=== PATIENT | female | born 1975 | race African-American/Black ===

== ENCOUNTER 2017-04-06 10:15 | Emergency (ER) | payer OTHER ==
[2017-04-06] MEDS ORDERED: BUTALB/ACETAMINOPHEN/CAFFEINE 1 TAB EACH PO ONE (10:32)
--- NOTE | 2017-04-06 10:54 | RADIOLOGY REPORT (SQ) ---
EXAM DESCRIPTION: CT HEAD WITHOUT COMPLETED DATE/TIME: 04/06/2017 10:43 am REASON FOR STUDY: left sided facial pain COMPARISON: None. TECHNIQUE: Axial images acquired through the brain without intravenous contrast. Images reviewed wi th bone, brain and subdural windows. Images stored on PACS. All CT scanners at this facility use dose modulation, iterative reconstruction, and/or weight based d osing when appropriate to reduce radiation dose to as low as reasonably achievable (ALARA). [facility]: Dose Right [facility]: CareDose [facility]: Dose Right [facility]: Teradose 4D [facility]: [employer] RADIATION DOSE: Up-to-date CT equipment and radiation dose reduction techniques were employed. CTDIv ol: 64.6 mGy. DLP: 1163 mGy-cm. mGy. LIMITATIONS: None. FINDINGS: VENTRICLES: Normal size and contour. CEREBRUM: No masses. No hemorrhage. No midline shift. No evidence for acute infarction. Normal gra y/white matter differentiation. No areas of low density in the white matter. CEREBELLUM: No masses. No hemorrhage. No alteration of density. No evidence for acute infarction. EXTRAAXIAL SPACES: No fluid collections. No masses. ORBITS AND GLOBE: No intra- or extraconal masses. Normal contour of globe without masses. CALVARIUM: No fracture. PARANASAL SINUSES: There is mucous membrane thickening in the right fronto ethmoid junction, bilatera l ethmoid air cells, left sphenoid sinus, and bilateral maxillary sinuses SOFT TISSUES: No mass or hematoma. OTHER: No other significant finding. IMPRESSION: No acute intracranial changes. Paranasal sinus inflammatory change EVIDENCE OF ACUTE STROKE: NO. COMMENT: Quality ID # [id number]: Final reports with documentation of one or more dose reduction techniques (e.g., Automated exposure control, adjustment of the mA and/or kV according to patient size, use of iterative reconstruction technique) TECHNICAL DOCUMENTATION: JOB ID: [id number] [employer]- All Rights Reserved
--- NOTE | 2017-04-06 11:29 | ER Document Report ---
ED Headache - General Chief Complaint: Headache Stated Complaint: HEADACHE Time Seen by Provider: 04/06/17 10:31 Mode of Arrival: Ambulatory Information source: Patient Notes: Patient states that she has a history of migraines. She states that since yesterday she has a left-sided headache that is different than her usual migraines. It is causing some blurry vision in the left eye. It is severe and sharp. It is constant. Nothing makes it better or worse. The pain does radiate to the left side of her face. She denies any fevers. She has had sinus congestion. TRAVEL OUTSIDE OF THE [place] IN LAST 30 DAYS: No - Related Data Allergies/Adverse Reactions: No Known Allergies Allergy (Verified 06/15/16 04:53) Past Medical History - General Information source: Patient - Social History Smoking Status: Current Every Day Smoker Chew tobacco use (# tins/day): No Frequency of alcohol use: None Drug Abuse: None Family History: None, Reviewed & Not Pertinent Patient has suicidal ideation: No Patient has homicidal ideation: No Neurological Medical History: Reports: Hx Migraine Renal/ Medical History: Reports: Hx Kidney Stones. Denies: Hx Peritoneal Dialysis Musculoskeltal Medical History: Reports Hx Arthritis - knees and hips Past Surgical History: Reports: Hx Cardiac Catheterization - x2, Hx Section - x2, Hx Gynecologic Surgery - fibroid removed, Hx Tubal Ligation - Immunizations Hx Diphtheria, Pertussis, Tetanus Vaccination: Yes - 2016 Review of Systems - Review of Systems Constitutional: denies: Chills, Fever EENT: Blurred vision. denies: Eye discharge Cardiovascular: denies: Chest pain, Palpitations Respiratory: Cough. denies: Short of breath -: Yes All other systems reviewed and negative Physical Exam - Vital signs Vitals: Temp Pulse Resp BP Pulse Ox 98.6 F 98 16 113/73 99 04/06/17 10:17 04/06/17 10:17 04/06/17 10:17 04/06/17 10:17 04/06/17 10:17 Interpretation: Normal - General General appearance: Appears well, Alert - HEENT Head: Normocephalic, Atraumatic Eyes: Normal Pupils: PERRL - Respiratory Respiratory status: No respiratory distress Chest status: Nontender Breath sounds: Normal Chest palpation: Normal - Cardiovascular Rhythm: Regular Heart sounds: Normal auscultation Murmur: No - Abdominal Inspection: Normal Distension: No distension Bowel sounds: Normal Tenderness: Nontender Organomegaly: No organomegaly - Back Back: Normal, Nontender - Extremities General upper extremity: Normal inspection, Nontender, Normal color, Normal ROM , Normal temperature General lower extremity: Normal inspection, Nontender, Normal color, Normal ROM , Normal temperature, Normal weight bearing. 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 Discharge - Discharge Clinical Impression: Acute sinusitis Condition: Stable Disposition: HOME, SELF-CARE Instructions: Sinusitis ([facility]) Additional Instructions: Please follow-up with your primary care physician as soon as possible Prescriptions: Amox Tr/Potassium Clavulanate [Augmentin 875-125 Tablet] 1 tab PO BID 10 Days tablet Butalb/Acetaminophen/Caffeine [Fioricet (50-325-40 mg) Tablet] 1 - 2 tab PO Q4H #20 tab
[2017-04-06 11:41] VITALS: BP 98/70
== END 2017-04-06 11:45 | disposition home or self-care (01) ==
LOC: ER 10:15
DX: J01.90 Acute sinusitis, unspecified (principal); R51 Headache; H53.8 Other visual disturbances; F17.200 Nicotine dependence, unspecified, uncomplicated
CPT/HCPCS: 99284; 70450; J3490

== ENCOUNTER 2018-06-04 10:24 | Emergency (ER) | payer OTHER ==
[2018-06-04] MEDS ORDERED: NORMAL SALINE 1000 ML 1,000 ML IV ONE (10:58)
[2018-06-04] MEDS ORDERED: DIPHENHYDRAMINE HCL 50 MG/ML VIAL IV ONE (10:59)
[2018-06-04] MEDS ORDERED: MAGNESIUM SULFATE/D5W 1 GM/100 ML RTUPB IV ONE (10:59)
[2018-06-04] MEDS ORDERED: BUTALB/ACETAMINOPHEN/CAFFEINE 1 TAB EACH PO ONE (10:59)
[2018-06-04] MEDS ORDERED: DEXAMETHASONE SOD PHOS INJ 10 MG/1 ML VIAL IV ONE (10:59)
[2018-06-04] MEDS ORDERED: KETOROLAC TROMETHAMINE INJ/PF 30 MG/1 ML SDV IV ONE (10:59)
[2018-06-04] MEDS ORDERED: METOCLOPRAMIDE HCL INJ/PF 10 MG/2 ML SDV IV ONE (11:00)
--- NOTE | 2018-06-04 11:03 | ER Document Report ---
ED General - General Chief Complaint: Headache Stated Complaint: HEADACHE Time Seen by Provider: 06/04/18 10:54 Notes: Patient is a 42-year-old female with history of migraines that presents to the emergency department for chief complaint of headache. Patient states she is been having a headache since this past Monday, typical of her migraines, she states the pain is behind both eyes, which is common with her other migraine she has had in the past. This is not the worst when she has had, but states is from the longer-lasting ones. She currently rates it as a 6 out of 10, dull and throbbing ache sensation, with associated nausea and photophobia, no vomiting. She did take rizatriptan, without resolution of her symptoms, which she usually does help so she decided to come to the emergency department. She is not currently on any maintenance medication or prophylactic migraine medications. She denies any any numbness, weakness or tingling, or changes in her gait. Past Medical History: Migraine headaches Past Surgical History: x2, tubal ligation Social History: Admits to smoking cigarettes daily, denies alcohol or drug use Family History: Reviewed and noncontributory for presenting illness Allergies: Reviewed, see documented allergy list. REVIEW OF SYSTEMS: Other than noted above, the 12 point review of systems was reviewed with the patient and were negative, all pertinent findings are included in the HPI. PHYSICAL EXAMINATION: Vital signs reviewed, nursing noted reviewed. GENERAL: Well-appearing, well-nourished and in no acute distress. HEAD: Atraumatic, normocephalic. EYES: Eyes appear normal, extraocular movements intact, sclera anicteric, conjunctiva are normal. PERRLA ENT: nares patent, oropharynx clear without exudates. Moist mucous membranes. NECK: Normal range of motion, supple without lymphadenopathy LUNGS: Breath sounds clear to auscultation bilaterally and equal. No wheezes rales or rhonchi. HEART: Regular rate and rhythm without murmurs ABDOMEN: Soft, nontender, normoactive bowel sounds. No rebound, guarding, or rigidity. No masses appreciated. EXTREMITIES: Nontender, good range of motion, no pitting or edema. NEUROLOGICAL: No focal neurological deficits. Moves all extremities spontaneously Motor and sensory grossly intact on exam. PSYCH: Normal mood, normal affect. SKIN: Warm, Dry, normal turgor, no rashes or lesions noted on exposed skin TRAVEL OUTSIDE OF THE [place] IN LAST 30 DAYS: No - Related Data Allergies/Adverse Reactions: No Known Allergies Allergy (Verified 06/04/18 10:29) Past Medical History - Social History Smoking Status: Current Every Day Smoker Chew tobacco use (# tins/day): No Frequency of alcohol use: Occasional Drug Abuse: None Family History: None, Reviewed & Not Pertinent Patient has suicidal ideation: No Patient has homicidal ideation: No Neurological Medical History: Reports: Hx Migraine Renal/ Medical History: Reports: Hx Kidney Stones. Denies: Hx Peritoneal Dialysis Musculoskeletal Medical History: Reports Hx Arthritis - knees and hips Past Surgical History: Reports: Hx Cardiac Catheterization - x2, Hx Section - x2, Hx Gynecologic Surgery - fibroid removed, Hx Thyroid Surgery, Hx Tubal Ligation - Immunizations Hx Diphtheria, Pertussis, Tetanus Vaccination: Yes - 2015 Physical Exam - Vital signs Vitals: Temp Pulse Resp BP Pulse Ox 98.6 F 117 H 14 134/76 H 97 06/04/18 10:29 06/04/18 10:29 06/04/18 10:29 06/04/18 10:29 06/04/18 10:29 Course - Re-evaluation Re-evalutation: Patient seen and examined vital signs reviewed. Patient was evaluated and treated as appropriate for the patient's presenting symptoms and complaint, with consideration of any critical or life threatening conditions that may be associated with their obtained history and exam as noted above. Patient was treated with IV fluids, IV Reglan, IV Benadryl, IV Toradol, IV, IV dexamethasone, and Fioricet p.o. The patient was re-evaluated and was much improved, headache was resolved Evaluation was most consistent with headache Plan of care was discussed with the patient at this point, after careful consideration I feel that that patient can be discharged from the emergency department, the patient was educated treatments and reasons to return to the emergency department based on their presumed diagnosis as noted above, they were advised to followup with a primary care physician in 2-3 days. Patient was agreeable to plan of care. *Note is created using voice recognition software and may contain spelling, syntax or grammatical errors. - Vital Signs Vital signs: Temp Pulse Resp BP Pulse Ox 98.6 F 117 H 14 134/76 H 97 06/04/18 10:29 06/04/18 10:29 06/04/18 10:29 06/04/18 10:29 06/04/18 10:29 Discharge - Discharge Clinical Impression: Cephalgia Qualifiers: Headache type: unspecified Headache chronicity pattern: acute headache Intractability: not intractable Qualified Code(s): R51 - Headache Condition: Stable Disposition: HOME, SELF-CARE Instructions: Headache ([facility]) Additional Instructions: Please return to the emergency department if you have any worsening, or concern of your symptoms. Please return to the emergency department if you develop chest pain, difficulty breathing, severe abdominal pain, or ongoing vomiting. Please follow-up with your primary care physician in 2-3 days and any other recommended physicians. If prescribed, take all medications as directed. If you have any questions or concerns do not hesitate to return the emergency department for evaluation. Prescriptions: Butalb/Acetaminophen/Caffeine [Fioricet (50-325-40 mg) Tablet] 1 - 2 tab PO Q8H PRN #10 tab PRN Reason: headache Referrals: CRISTIANO CAMPUZANO MD [COMMUNITY BASED STAFF] - Follow up in 3-5 days (or your primary care )
[2018-06-04 12:41] VITALS: BP 126/84
== END 2018-06-04 12:40 | disposition home or self-care (01) ==
LOC: ER 10:24
DX: R51 Headache (principal); R11.0 Nausea; H53.149 Visual discomfort, unspecified; F17.200 Nicotine dependence, unspecified, uncomplicated
CPT/HCPCS: 99283; 96375; 96365; J3490; J1200; J1885; J2765; J3475; J7030; J1100

== ENCOUNTER 2019-05-01 19:39 | Emergency (ER) | payer OTHER ==
[2019-05-01] MEDS ORDERED: ASPIRIN 81 MG TABLET, CHEWABLE PO ONE ×2 (19:51→20:04)
[2019-05-01 20:28] LABS: ABSOLUTE BASOPHILS # (AUTO) 0.1 10^3/uL (0.0-0.2); ABSOLUTE EOSINOPHILS # (AUTO) 0.7 10^3/uL (0.0-0.6); ABSOLUTE LYMPHOCYTES (AUTO) 2.4 10^3/uL (0.5-4.7); ABSOLUTE MONOCYTES (AUTO) 0.6 10^3/uL (0.1-1.4); ABSOLUTE NEUT (AUTO) 4.3 10^3/uL (1.7-8.2); ALKALINE PHOSPHATASE 65 U/L (38-126); ANION GAP 9 (5-19); ASPARTATE AMINO TRANSFERASE 22 U/L (14-36); BASOPHILS % (AUTO) 1.1 % (0-2); BILIRUBIN,DIRECT 0.1 mg/dL (0.0-0.4); BILIRUBIN,TOTAL 0.3 mg/dL (0.2-1.3); BLOOD UREA NITROGEN 14 mg/dL (7-20); CALCIUM 9.3 mg/dL (8.4-10.2); CARBON DIOXIDE 28 mmol/L (22-30); CHLORIDE 102 mmol/L (98-107); CREATINE KINASE 47 U/L (30-135); EOSINOPHILS % (AUTO) 8.1 % (0-6); GLUCOSE 142 mg/dL (75-110); HEMATOCRIT 40.8 % (36.0-47.0); HEMOGLOBIN 13.2 g/dL (12.0-15.5); MEAN CORPUSCULAR HEMOGLOBIN 24.9 pg (27.0-33.4); MEAN CORPUSCULAR HGB CONC 32.5 g/dL (32.0-36.0); MEAN CORPUSCULAR VOLUME 77 fl (80-97); MONOCYTES % (AUTO) 7.5 % (3-13); PLATELET COUNT 235 10^3/uL (150-450); POTASSIUM 4.3 mmol/L (3.6-5.0); RED BLOOD COUNT 5.31 10^6/uL (3.72-5.28); RED CELL DISTRIBUTION WIDTH 15.3 % (11.5-14.0); SEGMENTED NEUTROPHILS % (AUTO) 53.3 % (42-78); TOTAL CELLS COUNTED % (AUTO) 100 %; TOTAL PROTEIN 7.2 g/dL (6.3-8.2); WHITE BLOOD COUNT 8.1 10^3/uL (4.0-10.5)
[2019-05-01 20:41] LABS: CREATINE KINASE MB < 0.22 ng/mL (<4.55); TROPONIN I < 0.012 ng/mL
[2019-05-01] MEDS ORDERED: NORMAL SALINE 1000 ML 1,000 ML IV ONE (20:43)
[2019-05-01] MEDS ORDERED: LORAZEPAM INJ 2 MG/1 ML VIAL IV ONE (20:43)
--- NOTE | 2019-05-01 20:48 | ER Document Report ---
ED Cardiac - General Chief Complaint: Palpitations Stated Complaint: TACHYCARDIA [facility] Provider: [facility] [[facility]] - Follow up as needed Mode of Arrival: Ambulatory Information source: Patient TRAVEL OUTSIDE OF THE [place] IN LAST 30 DAYS: No - HPI Patient complains to provider of: Palpitations. denies: Chest pain, Chest tightness, Shortness of breath, Other Use of: denies: Alcohol, Amphetamines, Bath salts, Caffeine, Cocaine, Decongestants, Other Was the onset of pain: Sudden Chest pain location: No: Substernal, Axillary, Back, Pleuritic, Under breast, Other Quality of pain: denies: None, Constant, Intermittent, Mild, Moderate, Severe, Achy, Burning, Constriction, Cramping, Crushing, Dull, Heaviness, Incisional, Indigestion, Numbness, Pressure, Radiating, Sharp, Stabbing, Tearing, Throbbing, Tightness, Tingling, Other Chest pain radiation location: denies: Left jaw, Left arm, Left shoulder, Right jaw, Right arm, Right shoulder, Back, Neck, None Severity now: Mild Severity at worst: Moderate Pain level currently: Denies Chest pain precipitating factors: Physical Exertion - mild carrying laundry Cardiac risk factors: + Family history. denies: None, Diabetes, Hypertension, Smoker, Dyslipidemia, Hx CHF, Hx OK Positive cardiac history: No Associated symptoms: None. denies: Abdominal pain, Anxiety, Back pain, Cool ex tremities, Diaphoresis, Dizziness, Edema, Fatigue, Fever/chills, Headache, Heartburn, Hypotension, Jaw pain, Lightheaded, Nausea/vomiting, Neck pain, Rash, Shortness of breath, Swelling/lump in chest, Syncope, Weakness, Other Exacerbated by: Denies Relieved by: Nothing - Related Data Allergies/Adverse Reactions: No Known Allergies Allergy (Verified 06/04/18 10:29) Past Medical History - Social History Smoking Status: Current Some Day Smoker Frequency of alcohol use: None Drug Abuse: None Family History: None, Reviewed & Not Pertinent Patient has suicidal ideation: No Patient has homicidal ideation: No Neurological Medical History: Reports: Hx Migraine Renal/ Medical History: Reports: Hx Kidney Stones. Denies: Hx Peritoneal Dialysis Musculoskeletal Medical History: Reports Hx Arthritis - knees and hips Past Surgical History: Reports: Hx Cardiac Catheterization - x2, Hx Section - x2, Hx Gynecologic Surgery - fibroid removed, Hx Thyroid Surgery, Hx Tubal Ligation - Immunizations Hx Diphtheria, Pertussis, Tetanus Vaccination: Yes - 2015 Review of Systems - Review of Systems Constitutional: denies: No symptoms reported, See HPI, Chills, Diaphoresis, Fever, Malaise, Weakness, Other, Weight gain, Weight loss, Recent illness EENT: denies: No symptoms reported, See HPI, Eye pain, Eye discharge, Blurred vision, Tearing, Double vision, Ear pain, Ear discharge, Nose pain, Nose congestion, Nose discharge, Sinus pressure, Sinus discharge, Throat pain, Difficulty swallowing, Throat swelling, Mouth pain, Mouth swelling, Dental problem, Vertigo, Other Cardiovascular: Palpitations. denies: No symptoms reported, See HPI, Chest pain, Heart racing, Orthopnea, Dyspnea, Syncope, Dizziness, Lightheaded, Edema, Other, Paroxysmal Nocturnal Dysp Gastrointestinal: denies: No symptoms reported, See HPI, Abdomen distended, Abdominal pain, Diarrhea, Nausea, Vomiting, Constipation, Blood streaked bowels, Poor appetite, Poor fluid intake, Blood in vomit, Black stools, Rectal bleeding, Last bowel movement, Fecal incontinence, Other Neurological/Psychological: No symptoms reported Physical Exam - Vital signs Vitals: Temp Resp 98.1 F 10 L 05/01/19 19:48 05/01/19 19:48 Notes: PHYSICAL EXAMINATION: GENERAL: Well-appearing, well-nourished and in no acute distress. HEAD: Atraumatic, normocephalic. EYES: Pupils equal round and reactive to light, extraocular movements intact, sclera anicteric, conjunctiva are normal. ENT: nares patent, oropharynx clear without exudates. Moist mucous membranes. NECK: Normal range of motion, supple without lymphadenopathy LUNGS: Breath sounds clear to auscultation bilaterally and equal. No wheezes rales or rhonchi. HEART: tachycardic rate with sinus tach on monitor. no rubs murmurs of gallops ABDOMEN: Soft, nontender, normoactive bowel sounds. No guarding, no rebound. No masses appreciated. EXTREMITIES: Normal range of motion, no pitting or edema. No cyanosis. NEUROLOGICAL: No focal neurological deficits. Moves all extremities spontaneously and on command. PSYCH: Normal mood, normal affect. SKIN: Warm, Dry, normal turgor, no rashes or lesions noted. Course - Vital Signs Vital signs: Temp Pulse Resp BP Pulse Ox 98.1 F 20 120/71 100 05/01/19 19:48 05/01/19 21:05 05/01/19 21:05 05/01/19 21:05 - Laboratory Result Diagrams: 05/01/19 19:53 05/01/19 19:53 Laboratory results interpreted by me: 05/01/19 05/01/19 05/01/19 19:53 19:53 19:53 RBC 5.31 H MCV 77 L MCH 24.9 L RDW 15.3 H Eos % (Auto) 8.1 H Absolute Eos (auto) 0.7 H D-Dimer 0.61 H Glucose 142 H - Diagnostic Test Radiology reviewed: Image reviewed, Reports reviewed - EKG Interpretation by Me EKG shows normal: Sinus rhythm Rate: Tachycardia - Transfer of Care Notes: 05/02/19 00:28 After IV fluids heart rate is now 99 down from approximately 120 I believe that this is partially due to dehydration troponins have been negative d-dimer was positive however CTA of the chest was negative for pulmonary embolus or other abnormality. I will tell her to drink a quite a bit of fluid I think some of it also was due to hyperventilation so I will give her a short course of Ativan. Discharge - Discharge Clinical Impression: Tachycardia, Dehydration, Anxiety Condition: Stable Disposition: HOME, SELF-CARE Instructions: Palpitations (Irregular or Rapid Heartrate) ([facility]), Benzodiazepines ([facility]), Dehydration ([facility]), Anxiety ([facility]) Additional Instructions: Return if shortness of breath chest pain lightheadedness dizziness or condition worsens follow-up with your regular doctor for possible outpatient Holter monitor and/or stress test Prescriptions: Lorazepam [Ativan 0.5 mg Tablet] 0.5 mg PO Q8 #10 tab [facility]errals: [facility] [Primary [facility]] - Follow up as needed
--- NOTE | 2019-05-01 20:58 | RADIOLOGY REPORT (SQ) ---
EXAM DESCRIPTION: XR CHEST 1 VIEW COMPLETED DATE/TME: 05/01/2019 20:05 CLINICAL HISTORY: PALPITATIONS COMPARISON: None FINDINGS: Cardiac silhouette is within normal limits. EKG leads project over the chest. There is no focal parenchymal or pleural disease. There is no acute osseous process visualized. IMPRESSION: No evidence of acute cardiopulmonary disease.
[2019-05-01 21:57] LABS: FREE T4 (FREE THYROXINE) 1.21 ng/dL (0.78-2.19)
[2019-05-01 22:10] LABS: THYROID STIMULATING HORMONE 1.17 uIU/mL (0.47-4.68)
--- NOTE | 2019-05-01 22:57 | EKG REPORT ---
SEVERITY:- OTHERWISE NORMAL ECG - SINUS TACHYCARDIA : Confirmed by: Justo Mcclain 01-May-2019 22:55:54
--- NOTE | 2019-05-02 00:05 | RADIOLOGY REPORT (SQ) ---
EXAM DESCRIPTION: [facility]: CT CHEST ANGIOGRAPHY WITHOUT THEN WITH IV CONTRAST CLINICAL HISTORY: 43 years Female; pos d dimer(0.61) TACHYCARDIA ? pe; TECHNIQUE: CT angiogram of the chest using intravenous contrast.. MIP reconstructions were performed. All CT scans at this facility use dose modulation, iterative reconstruction, and/or weight based dosing when appropriate to reduce radiation dose to as low as reasonably achievable. COMPARISON: None. FINDINGS: Chest: No filling defects in the central pulmonary arteries. No acute infiltrate, effusion, or pneumothorax. Mediastinum is normal, with no adenopathy or mass. IMPRESSION: 1. No CT evidence for pulmonary embolism. 2. No acute pulmonary findings.
[2019-05-02 01:05] VITALS: BP 115/62
== END 2019-05-02 01:05 | disposition home or self-care (01) ==
LOC: ER 19:39
DX: E86.0 Dehydration (principal); F41.9 Anxiety disorder, unspecified; R00.2 Palpitations; R00.0 Tachycardia, unspecified; F17.200 Nicotine dependence, unspecified, uncomplicated; R79.89 Other specified abnormal findings of blood chemistry
CPT/HCPCS: 93005; 99285; 96361; 96374; 36415; 84439; 82553; 82550; 83735; 84443; 85025; 80053; 84484; 85379; 71045; 71275; 93010; J2060; J7030

== ENCOUNTER 2019-09-16 09:53 | Inpatient (IN) | payer OTHER ==
[2019-09-10 11:15] LABS: HEMATOCRIT 38.8 % (36.0-47.0); HEMOGLOBIN 12.9 g/dL (12.0-15.5); MEAN CORPUSCULAR HEMOGLOBIN 25.5 pg (27.0-33.4); MEAN CORPUSCULAR HGB CONC 33.2 g/dL (32.0-36.0); MEAN CORPUSCULAR VOLUME 77 fl (80-97); PLATELET COUNT 253 10^3/uL (150-450); RED BLOOD COUNT 5.06 10^6/uL (3.72-5.28); WHITE BLOOD COUNT 6.3 10^3/uL (4.0-10.5)
[2019-09-10 11:20] LABS: APPEARANCE,URINE CLOUDY; BILIRUBIN,URINE NEGATIVE (NEGATIVE); COLOR,URINE YELLOW; GLUCOSE, URINE NEGATIVE (NEGATIVE); KETONES,URINE NEGATIVE (NEGATIVE); LEUKOCYTE ESTERASE,URINE NEGATIVE (NEGATIVE); NITRITE,URINE NEGATIVE (NEGATIVE); PROTEIN,URINE NEGATIVE (NEGATIVE); URINE SPECIFIC GRAVITY 1.021; UROBILINOGEN,URINE NEGATIVE mg/dL (<2.0)
--- NOTE | 2019-09-10 17:02 | EKG REPORT ---
SEVERITY:- NORMAL ECG - SINUS RHYTHM : Confirmed by: Yu Michele MD 10-Sep-2019 17:01:31
[~2019-09-16 09:53] MED LIST: FENTANYL CITRATE INJ/PF 100 MCG/2 ML AMPUL ONE; HYDROMORPHONE HCL INJ/PF 2 MG/ML AMPULE ONE; LACTATED RINGERS 1000 ML IV PRN; LIDOCAINE 0.5% INJ-PF (5 MG/ML) 50 ML SDV SUBCUT PRN; MIDAZOLAM 2 MG/2 ML INJ ONE; PROPOFOL INJ 200 MG/20 ML VIAL IV ONE
[2019-09-16] MEDS ORDERED: PROMETHAZINE HCL INJ 25 MG/1 ML VIAL ONE (11:21)
[2019-09-16] MEDS ORDERED: CEFAZOLIN INJ 1 GM VIAL ONE (11:42)
[2019-09-16] MEDS ORDERED: MEPERIDINE HCL/PF INJ 25 MG/1 ML DISP.SYRIN IV PRN (11:44)
[2019-09-16] MEDS ORDERED: FENTANYL CITRATE INJ/PF 100 MCG/2 ML AMPUL IV PRN ×3 (11:44)
[2019-09-16] MEDS ORDERED: DIPHENHYDRAMINE HCL 50 MG/ML VIAL IV PRN (11:44)
[2019-09-16] MEDS ORDERED: MORPHINE SULFATE 10 MG/ML INJ IV PRN (11:44)
[2019-09-16] MEDS ORDERED: PROMETHAZINE HCL INJ 25 MG/1 ML VIAL IV PRN (11:44)
[2019-09-16] MEDS ORDERED: ONDANSETRON HCL INJ/PF 4 MG/2 ML SDV IV PRN (11:44)
--- NOTE | 2019-09-16 13:09 | Operative Report ---
Operative Report DATE OF SURGERY: 09/16/19 PREOPERATIVE DIAGNOSIS: Menorrhagia fibroids POSTOPERATIVE DIAGNOSIS: Same OPERATION: [facility] bilateral salpingectomy excision of round ligament mass SURGEON: RAMSEY CENTENO 1ST [employer] MANAGER: SUKHWINDER GABRIEL ANESTHESIA: GA TISSUE REMOVED OR ALTERED: Uterus tubes and right adnexal mass ESTIMATED BLOOD LOSS: Possibly 100 cc PROCEDURE: Patient was placed in a supine position prepped draped sterile fashion. Pfannenstiel incision was made through the existing Pfannenstiel eschar. The incision carried through the subcutaneous tissue and fascia with sharp dissection. Fascia was sharply divided and the parietoperitoneum was entered with sharp dissection. Large uterus was encountered and grasped with a Geraldine thyroid clamp. Large Kellys were placed at the utero-ovarian ligaments. The left round ligament was identified sutured and then divided and Achilles free space was entered on the left the mesosalpinx and utero-ovarian ligament was clamped and divided. Pedicles were tied with 2-0 Vicryl. The procedure was repeated on the right. A large 10 x 10 fibroid was then shelled out from the fundus. Uterus was then removed by clamping each broad ligament pedicle divided and sutured with 2-0 Vicryl. Bladder flap was created with sharp dissection. Patient carried down until crossclamped we placed on the cervix and the cervix and remaining portion of the uterus was removed. The articles were closed with suture of 2-0 Vicryl and the cuff was closed with a [id number] suture of 2- 0 Vicryl. Small amount of bleeding was noted on the dome of the bladder this was controlled with a 3-0 Vicryl stitch. There was a 2 x 2 centimeter cystic mass arising from the round ligament on the right this was crossclamped and that was removed. And the pedicle and sutured with 2-0 Vicryl. The pedicles were inspected and hemostasis was noted. Abuse amounts of irrigation were then used and again hemostasis was noted. FloSeal seal was placed over the dome of the bladder. The previously placed retractor and wet saline packs were then were used to pack the bowel were removed. Perineum was cc plicated midline using 2-0 Vicryl. Fascia is closed with 0 Vicryl one stitch beginning the right in the midline a second begun to the left and right to the midline. It was closed usi ng insorb johnnie. The patient is urinating clear throughout the procedure was terminated she was taken recovery in good condition.
[2019-09-16] MEDS ORDERED: FENTANYL CITRATE INJ/PF 100 MCG/2 ML AMPUL ONE (13:26)
[2019-09-16] MEDS ORDERED: MORPHINE SULFATE 10 MG/ML INJ ONE (13:38)
[2019-09-16] MEDS ORDERED: DEXAMETHASONE SOD PHOSPHATE INJ 4 MG/1 ML VIAL ONE (14:17)
[2019-09-16] MEDS ORDERED: KETOROLAC TROMETHAMINE 60 MG/2 ML SDV ONE (14:17)
[2019-09-16] MEDS ORDERED: SUCCINYLCHOLINE CHLORIDE INJ 200 MG/10 ML VIAL ONE (14:17)
[2019-09-16] MEDS ORDERED: ONDANSETRON HCL INJ/PF 4 MG/2 ML SDV ONE (14:17)
[2019-09-16] MEDS ORDERED: ROCURONIUM BROMIDE INJ 50 MG/5 ML VIAL IV ONE (14:17)
[2019-09-16] MEDS: OXYCODONE-ACETAMINOPHEN 5-325 MG TABLET PO PRN ×2 (15:31→21:42)
[2019-09-16] MEDS ORDERED: IBUPROFEN 800 MG TABLET PO SCH (16:00)
[2019-09-16] MEDS: MORPHINE SULFATE 10 MG/ML INJ IM PRN ×2 (16:23→23:30)
[2019-09-16] MEDS: DEXTROSE 5%-LACTATED RINGERS 1,000 ML IV PRN (19:25)
[2019-09-16] MEDS: IBUPROFEN 800 MG TABLET PO SCH (21:42)
[2019-09-17] MEDS: OXYCODONE-ACETAMINOPHEN 5-325 MG TABLET PO PRN ×3 (03:50→16:13)
[2019-09-17] MEDS: DEXTROSE 5%-LACTATED RINGERS 1,000 ML IV PRN (03:52)
[2019-09-17] MEDS: IBUPROFEN 800 MG TABLET PO SCH ×3 (06:58→22:18)
--- NOTE | 2019-09-17 07:29 | PDOC PROGRESS REPORT ---
Subjective Progress Note for:: 09/17/19 Subjective:: pt states she feels fine Reason For Visit: N93.9 ABNORMAL UTERINE AND VAGINAL BLEEDING, UNSPE Physical Exam - Physical Exam Vital Signs: Temp Pulse Resp BP Pulse Ox 97.7 F 115 H 18 120/76 100 09/17/19 04:16 09/17/19 04:16 09/17/19 04:16 09/17/19 04:16 09/17/19 04:16 Intake & Output 09/16/19 09/17/19 09/18/19 06:59 06:59 06:59 Intake Total 3500 Output Total 1150 Balance 2350 Weight 98.43 kg General appearance: PRESENT: no acute distress Respiratory exam: PRESENT: clear to auscultation [email or web address] Cardiovascular exam: PRESENT: RRR Result Laboratory Results: 09/10/19 10:48 Assessment & Plan - Diagnosis (1) Menorrhagia Is this a current diagnosis for this admission?: Yes (2) Fibroid uterus Is this a current diagnosis for this admission?: Yes - Time Time Spent with patient: Less than 15 minutes Medications reviewed and adjusted accordingly: Yes Anticipated discharge: Home Within: within 24 hours
[2019-09-17] MEDS ORDERED: OXYCODONE-ACETAMINOPHEN 5-325 MG TABLET PO SCH (17:30)
[2019-09-17] MEDS ORDERED: OXYCODONE-ACETAMINOPHEN 5-325 MG TABLET PO PRN ×2 (22:00→22:30)
[2019-09-17] MEDS ORDERED: OXYCODONE-ACETAMINOPHEN 5-325 MG TABLET PO ONE (22:45)
[2019-09-18] MEDS ORDERED: OXYCODONE-ACETAMINOPHEN 5-325 MG TABLET PO SCH ×2 (03:00→12:00)
[2019-09-18] MEDS: IBUPROFEN 800 MG TABLET PO SCH (05:00)
--- NOTE | 2019-09-18 07:30 | PDOC DISCHARGE SUMMARY ---
Impression - Admit/DC Date/PCP Admission Date/Primary Care Provider: 09/16/19 09:53 NICOLETTE FAROOQ NP Discharge Date: 09/18/19 - Discharge Diagnosis (1) Menorrhagia Is this a current diagnosis for this admission?: Yes (2) Fibroid uterus Is this a current diagnosis for this admission?: Yes - Additional Information Resuscitation Status: Full Code Discharge Diet: As Tolerated Discharge Activity: Activity As Tolerated, Balance Activity w/Rest, No Driving, No Lifting Over 10 Pounds, Pelvic Rest, Slowly Increase Activity, Walk Frequently Referrals: NICOLETTE FAROOQ NP [Primary Care Provider] - RAMSEY CENTENO MD [ACTIVE STAFF] - 09/24/19 9:30 am (CALL THE OFFICE FOR ANY QUESTIONS OR CONCERNS.) Prescriptions: Ibuprofen [Ibu] 800 mg PO Q8H 30 Days #90 tablet Oxycodone HCl/Acetaminophen [Percocet 5-325 mg Tablet] 1 tab PO Q6H PRN 7 Days #28 tab PRN Reason: Home Medications: Amitriptyline HCl [Elavil 25 mg Tablet] 25 mg PO QHS 06/04/18 Bupropion HCl [Wellbutrin 100 mg Tablet] 150 mg PO QHS 06/04/18 Ibuprofen [Ibu] 800 mg PO Q8H 30 Days #90 tablet 09/16/19 Oxycodone HCl/Acetaminophen [Percocet 5-325 mg Tablet] 1 tab PO Q6H PRN 7 Days #28 tab 09/16/19 History of Present Illiness History of Present Illness: COLLEEN RAMON is a 43 year old female Hospital Course Hospital Course: post op course benign Physical Exam - Physical Exam Vital Signs: Temp Pulse Resp BP Pulse Ox 97.7 F 94 18 131/69 H 100 09/18/19 05:10 09/18/19 05:10 09/18/19 05:10 09/18/19 05:10 09/18/19 05:10 Intake & Output 09/17/19 09/18/19 09/19/19 06:59 06:59 06:59 Intake Total 3500 2100 Output Total 1150 2100 Balance 2350 0 Weight 98.43 kg 98.3 kg General appearance: PRESENT: no acute distress Respiratory exam: PRESENT: clear to auscultation eduarda Cardiovascular exam: PRESENT: RRR GI/Abdominal exam: PRESENT: soft - incision wnl Results Laboratory Results: WBC 6.3 10^3/uL (4.0-10.5) 09/10/19 10:48 RBC 5.06 10^6/uL (3.72-5.28) 09/10/19 10:48 Hgb 12.9 g/dL (12.0-15.5) 09/10/19 10:48 Hct 38.8 % (36.0-47.0) 09/10/19 10:48 MCV 77 fl (80-97) L 09/10/19 10:48 MCH 25.5 pg (27.0-33.4) L 09/10/19 10:48 MCHC 33.2 g/dL (32.0-36.0) 09/10/19 10:48 RDW 14.0 % (11.5-14.0) 09/10/19 10:48 Plt Count 253 10^3/uL (150-450) 09/10/19 10:48 Urine Color YELLOW 09/10/19 10:50 Urine Appearance CLOUDY 09/10/19 10:50 Urine pH 8.0 (5.0-9.0) 09/10/19 10:50 Ur Specific [place] 1.021 09/10/19 10:50 Urine Protein NEGATIVE mg/dL (NEGATIVE) 09/10/19 10:50 Urine Glucose (UA) NEGATIVE mg/dL (NEGATIVE) 09/10/19 10:50 Urine Ketones NEGATIVE mg/dL (NEGATIVE) 09/10/19 10:50 Urine Blood NEGATIVE (NEGATIVE) 09/10/19 10:50 Urine Nitrite NEGATIVE (NEGATIVE) 09/10/19 10:50 Urine Bilirubin NEGATIVE (NEGATIVE) 09/10/19 10:50 Urine Urobilinogen NEGATIVE mg/dL (<2.0) 09/10/19 10:50 Ur Leukocyte Esterase NEGATIVE (NEGATIVE) 09/10/19 10:50 Urine WBC (Auto) 4 /HPF 09/10/19 10:50 Urine RBC (Auto) 0 /HPF 09/10/19 10:50 Urine Bacteria (Auto) TRACE /HPF 09/10/19 10:50 Squamous Epi Cells Auto 19 /HPF 09/10/19 10:50 Urine Mucus (Auto) RARE /LPF 09/10/19 10:50 Urine Ascorbic Acid NEGATIVE (NEGATIVE) 09/10/19 10:50 Urine HCG, Qual NEGATIVE (NEGATIVE) 09/16/19 10:10 Stroke Is this a Stroke Patient?: No Acute Heart Failure - Is this a Heart Failure Patient?: No
[2019-09-18 07:57] VITALS: BP 102/53
== END 2019-09-18 08:48 | disposition home or self-care (01) | DRG 743 ==
LOC: INOR 09:53 → 2N 14:21
PROVIDERS: ADMIT Obstetrics & Gynecology Gynecology; ATTEND Obstetrics & Gynecology Gynecology
PROC: 0UB70ZZ Excision of Bilateral Fallopian Tubes, Open Approach (ICD-10-PCS; 2019-09-16)
PROC: 0UT90ZZ Resection of Uterus, Open Approach (ICD-10-PCS; principal; 2019-09-16 12:15)
DX: N93.9 Abnormal uterine and vaginal bleeding, unspecified (principal); N92.0 Excessive and frequent menstruation with regular cycle; D25.9 Leiomyoma of uterus, unspecified; R19.09 Other intra-abdominal and pelvic swelling, mass and lump; Z79.899 Other long term (current) drug therapy
CPT/HCPCS: 36415; 81001; 81025; 840; 85027; 88305; 88307; 93005; 93010; J0330; J0690; J1100; J1170; J1885; J2250; J2270; J2405; J2550; J2704; J3010; J3490; J7121